=== PATIENT | female | born 1995 | race Two or more races ===

== ENCOUNTER 2024-06-06 07:10 | Emergency (ER) | payer OTHER ==
[~2024-06-06] VITALS: Ht 152.4 cm; Wt 49.4 kg
[2024-06-06] MEDS ORDERED: PYRIDIUM DS200 MG PO (08:41)
[2024-06-06] MEDS ORDERED: MACROBID 100 M100 MG PO (08:41)
== END 2024-06-06 08:53 | disposition home or self-care (01) ==
LOC: ER 07:11
DX: N39.0 Urinary tract infection, site not specified (principal); R30.0 Dysuria

== ENCOUNTER 2024-10-19 21:38 | Emergency (ER) | payer OTHER ==
[~2024-10-19] VITALS: Ht 152.4 cm; Wt 52.2 kg
[~2024-10-19 21:38] MED LIST: MACROBID 100 M100 MG PO; PYRIDIUM DS200 MG PO
== END 2024-10-20 01:23 | disposition home or self-care (01) ==
LOC: ER 21:40
DX: N92.0 Excessive and frequent menstruation with regular cycle (principal)